=== PATIENT | female | born 1950 | race Caucasian/White ===

== ENCOUNTER 2018-12-18 10:33 | Day surgery (SDC) | payer MEDICARE ==
[2018-12-10 15:50] LABS: BASOPHILS % (AUTO) 0.3 % (0-1); EOSINOPHILS # (AUTO) 0.1 X10'3 (0-0.9); EOSINOPHILS % (AUTO) 0.8 % (0-6); LYMPHOCYTES # (AUTO) 1.8 X10'3 (1.1-4.8); LYMPHOCYTES % (AUTO) 18.2 % (21-51); MEAN CORPUSCULAR HEMOGLOBIN 31.3 PG (27.0-31.0); MEAN CORPUSCULAR HGB CONC 33.9 g/dL (33.0-36.5); MEAN CORPUSCULAR VOLUME 92.1 FL (78-98); MEAN PLATELET VOLUME 8.7 FL (7.4-10.4); MONOCYTES # (AUTO) 0.6 X10'3 (0-0.9); MONOCYTES % (AUTO) 6.4 % (2-12); NEUTROPHILS # (AUTO) 7.5 X10'3 (1.8-7.7); NEUTROPHILS % (AUTO) 74.3 % (42-75); PRE OP HEMATOCRIT 43.9 % (35.0-45.0); PRE OP HEMOGLOBIN 14.9 g/dL (12.0-16.0); PRE OP PLATELET COUNT 233 X10'3 (140-440); RED BLOOD COUNT 4.77 X10'6 (4.20-5.60); RED CELL DISTRIBUTION WIDTH 13.5 % (11.5-14.5)
[2018-12-10 16:00] LABS: ALBUMIN 3.6 G/DL (3.4-5.0); ALBUMIN/GLOBULIN RATIO 0.9 (1.1-1.5); ALKALINE PHOSPHATASE 75 IU/L (46-116); BLOOD UREA NITROGEN 17 MG/DL (7-18); BUN/CREATININE RATIO 20.7 (6.6-38.0); CALCIUM 9.2 MG/DL (8.5-10.1); CHLORIDE 103 MMOL/L (99-107); CREATININE 0.82 MG/DL (0.40-0.90); PRE OP ALT 24 U/L (30-65); PRE OP ANION GAP 7 (8-16); PRE OP AST 14 U/L (10-37); PRE OP BILIRUB, TOTAL 0.2 MG/DL (0.0-1.0); PRE OP GLUCOSE 105 MG/DL (70-104); PRE OP SODIUM 136 MMOL/L (135-145); TOTAL CARBON DIOXIDE 26.4 MMOL/L (24-32); TOTAL PROTEIN 7.4 G/DL (6.4-8.2); eGFR 69 ML/MIN
[~2018-12-18] VITALS: Ht 162.6 cm; Wt 91.2 kg
[~2018-12-18 10:33] MED LIST: ALPR-624 PO; DOXY100C2 PO; ESTR2TAB PO; FAMO20TA8 PO; HYDR-3965 PO; IBUP-24 PO; LACT1CAP65 PO; MECL12.584 PO; METH1ADH6 TP; MULT-1085 PO; OMEGA XL PO; SENN-74; cefazolin/dext.iso 2gm/100 ML IV ONE; famotidine 20mg tablet PO ONE; ringers solution, lacted 1,000 ML IV SCH; vancomycin inj 1,500 MG in normal saline 300ml IV soln IV ONE
[2018-12-18 11:00] VITALS: BP 141/80
[2018-12-18] MEDS ORDERED: BUPIVAcaine/PF 2.5 mg/ml (0.25%) 30ml vial ONE (14:09)
[2018-12-18] MEDS ORDERED: sevoflurane 250ml liquid IH ONE (14:46)
[2018-12-18] MEDS ORDERED: midazolam 2 mg/2 ml injection ONE (14:51)
[2018-12-18] MEDS ORDERED: fentaNYL/PF 50MCG/1 ML 2ML syringe ONE (14:51)
[2018-12-18] MEDS ORDERED: ringers solution, lacted 1,000 ML IV SCH (15:33)
[2018-12-18] MEDS ORDERED: morphine 4 MG/ML inj SYRINge IV PRN ×2 (15:35)
[2018-12-18] MEDS ORDERED: proCHLORperazine 10 MG/2 ml inj IV PRN (15:35)
[2018-12-18] MEDS ORDERED: ondansetron/PF 4mg/2ml inj IV PRN (15:35)
[2018-12-18] MEDS ORDERED: meperidine/PF 25mg/ml syringe IV PRN ×3 (15:35)
[2018-12-18] MEDS ORDERED: triamcinolone acetonide 40mg/ml inj ONE (15:55)
[2018-12-18] MEDS ORDERED: propofol inj 20 ML IV ONE (15:56)
[2018-12-18] MEDS ORDERED: acetaminophen 1,000mg/100ml IV 100 ML IV ONE (15:56)
[2018-12-18 16:09] VITALS: BP 159/82
--- NOTE | 2018-12-18 16:09 | NUR ---
Received from OR via [facility] , accompanied by Anesthesiologist LIZ and report given by Anesthesiolgist. PATIENT WITH LEFT KNEE WITH BIAS WRAP, NO DRAINAGE PRESENT. + DORSALIS PEDIS. 20G PIV IN RIGHT UE RUNNING LR AT 100. Addendum: 12/18/18 at 1617 by Onesimo Houser RN, RN Amended: Links added.
[2018-12-18 16:18] VITALS: BP 160/78
[2018-12-18 16:28] VITALS: BP 158/80
[2018-12-18 16:38] VITALS: BP 168/84
--- NOTE | 2018-12-18 16:48 | NUR ---
ALL DC CRITERIA HAS BEEN MET. IV TAKEN OUT WITHOUT COMPLICATIONS. ALL INSTRUCTIONS COVERED AND ALL QUESTIONS ANSWERED. DRESSINGS CDI. OUT VIA WHEELCHAIR TO PERSONAL VEHICLE WHERE PATIENT WAS SECURED IN AND DRIVEN HOME BY FAMILY. JA HERRMANN ASSISTED PATIENT IN GETTING DRESSED. OUT WHERE FRIEND MICHAEL DROVE PATIENT HOME. Addendum: 12/18/18 at 1650 by Onesimo Houser RN, RN Amended: Links added.
== END 2018-12-18 16:49 | disposition home or self-care (01) ==
LOC: PAS 10:33
PROVIDERS: ATTEND Orthopaedic Surgery
DX: S83.272A Complex tear of lateral meniscus, current injury, left knee, initial encounter (principal); S83.242A Other tear of medial meniscus, current injury, left knee, initial encounter; M22.42 Chondromalacia patellae, left knee; M22.8X2 Other disorders of patella, left knee; M17.0 Bilateral primary osteoarthritis of knee; K21.9 Gastro-esophageal reflux disease without esophagitis; E66.01 Morbid (severe) obesity due to excess calories; M19.071 Primary osteoarthritis, right ankle and foot; F41.9 Anxiety disorder, unspecified; X58.XXXA Exposure to other specified factors, initial encounter; Y99.8 Other external cause status; Y93.89 Activity, other specified; Y92.89 Other specified places as the place of occurrence of the external cause; Z68.36 Body mass index [BMI] 36.0-36.9, adult; Z87.891 Personal history of nicotine dependence; Z72.89 Other problems related to lifestyle; Z90.710 Acquired absence of both cervix and uterus; Z98.890 Other specified postprocedural states
CPT/HCPCS: 29873; 29879; 29880; 36415; 80053; 82948; 85025; 93005; J0131; J2250; J2704; J3010; J3301; J3370; J3490; A6250; A6449; A7000; J7120

== ENCOUNTER 2023-11-26 11:35 | Day surgery (SDC) | payer MEDICARE ==
[~2023-11-26] VITALS: Ht 162.6 cm; Wt 90.9 kg
[~2023-11-26 11:35] MED LIST changes: -ALPR-624 PO; -ESTR2TAB PO; +ESTR2TAB50 PO; -HYDR-3965 PO; -LACT1CAP65 PO; +MECL-231 PO; -MECL12.584 PO; -METH1ADH6 TP; -OMEGA XL PO; -cefazolin/dext.iso 2gm/100 ML IV ONE; -famotidine 20mg tablet PO ONE; -ringers solution, lacted 1,000 ML IV SCH; -vancomycin inj 1,500 MG in normal saline 300ml IV soln IV ONE
[2023-11-26 12:21] VITALS: BP 145/74; PULSE 73; RESP 16
[2023-11-26] MEDS ORDERED: MIDAZolam 1 MG/ML 5ML VIAL ONE (13:19)
[2023-11-26] MEDS ORDERED: fentaNYL/PF 50MCG/1 ML 2ML syringe ONE (13:19)
[2023-11-26] MEDS ORDERED: diphenhydrAMINE 50 mg/ml inj ONE (13:19)
[2023-11-26] MEDS ORDERED: LIDOcaine 2% Viscous 15ml cup ONE (13:22)
[2023-11-26 13:40] VITALS: BP 145/74; PULSE 69; RESP 20; O2SAT 97
[2023-11-26 13:50] VITALS: BP 126/75; PULSE 65; RESP 15; O2SAT 95
[2023-11-26 14:00] VITALS: BP 137/69; PULSE 64; RESP 18; O2SAT 97
[2023-11-26 14:10] VITALS: BP 125/67; PULSE 60; RESP 16; O2SAT 96
== END 2023-11-26 14:20 | disposition home or self-care (01) ==
LOC: GI LAB 11:35
PROVIDERS: ATTEND Internal Medicine Gastroenterology
DX: K30 Functional dyspepsia (principal); R11.0 Nausea; K29.70 Gastritis, unspecified, without bleeding
CPT/HCPCS: 43239; A4620; J1200; J2250; J3010; J7030; Z7512; 88305; 99152